=== PATIENT | female | born 1945 | race Caucasian/White ===

== ENCOUNTER 2017-12-30 23:38 | Emergency (ER) | payer MEDICARE ==
[~2017-12-30] VITALS: Ht 160 cm; Wt 73.0 kg
[2017-12-30] MEDS ORDERED: ALBUTEROL (0.083%) 2.5MG/3ML NEB HHN STA (23:57)
[2017-12-30] MEDS ORDERED: IPRATROPIUM BROMIDE (0.02%) 0.5MG/2.5ML NEB HHN STA (23:57)
[2017-12-30] MEDS ORDERED: METHYLPREDNISOLONE SOD SUCC 125 MG/2 ML VIAL IV STA (23:57)
[2017-12-31] MEDS ORDERED: HYDROCODONE/ACETAMINOPHEN 5/325MG TABLET PO ONE (01:30)
[2017-12-31 02:18] VITALS: BP 115/73
== END 2017-12-31 03:23 | disposition home or self-care (01) ==
LOC: ER 23:38
DX: J44.1 Chronic obstructive pulmonary disease with (acute) exacerbation (principal); I10 Essential (primary) hypertension; F17.290 Nicotine dependence, other tobacco product, uncomplicated
CPT/HCPCS: 94644; 96374; 99285; 99406; J2930; J7611